=== PATIENT | female | born 1990 | race Caucasian/White ===

== ENCOUNTER 2017-12-11 06:02 | Inpatient (IN) ==
[2017-12-11] MEDS ORDERED: Lactated Ringers-OB Dept 1,000 ML ONE ×2 (06:34→07:13)
[2017-12-11] MEDS ORDERED: Metoclopramide Inj 10 MG/2 ML VIAL IV ONE (06:44)
[2017-12-11] MEDS ORDERED: Famotidine Inj 20 MG in Normal Saline Flush 10 ML IVP ONE (06:44)
[2017-12-11] MEDS ORDERED: Lactated Ringers 1,000 ML PRIMARY IV ONE ×2 (06:44→08:51)
[2017-12-11] MEDS ORDERED: LIDOCAINE W/ SODIUM BICARB 0.5 ML SYR SUBD PRN (06:44)
[2017-12-11] MEDS ORDERED: LIDOCAINE HCL 2 % 10 ML JELLY URO-JECT TOPICAL PRN (06:44)
[2017-12-11] MEDS ORDERED: CefOXitin Inj 2 GM in Sodium Chloride 0.9% 100 ML IV ONE (06:44)
[2017-12-11] MEDS ORDERED: CITRIC ACID/SODIUM CITRATE 30 ML CUP PO ONE ×2 (06:44→07:12)
[2017-12-11] MEDS ORDERED: NORMAL SALINE 10 ML SYRINGE FLUSH IVP PRN ×2 (06:44→07:50)
[2017-12-11] MEDS ORDERED: Lactated Ringers 1,000 ML PRIMARY IV SCH ×2 (06:45→08:00)
[2017-12-11] MEDS ORDERED: Oxytocin 20 Units + LR 20 UNIT/1,000 ML BAG IV SCH ×2 (06:45→09:36)
[2017-12-11 06:52] LABS: Hematocrit [HCT] 42.7 % (37.0-47.0); Hemoglobin [HGB] 14.7 g/dL (12.0-16.0); MEAN CORPUSCULAR HEMOGLOBIN 32.4 PG (27-31); MEAN CORPUSCULAR HGB CONC 34.4 g/dL (33-37); MEAN CORPUSCULAR VOLUME 94.1 FL (81-99); MEAN PLATELET VOLUME 11.6 FL (7.4-12.2); RED BLOOD COUNT 4.54 10^6/uL (4.20-5.40)
[2017-12-11] MEDS ORDERED: Metoclopramide Inj 10 MG/2 ML VIAL ONE (07:12)
[2017-12-11] MEDS ORDERED: FAMOTIDINE 20 MG/2 ML VIAL IVP ONE (07:13)
[2017-12-11] MEDS ORDERED: Sodium Chloride 0.9% 100 ML IV ONE (07:14)
[2017-12-11] MEDS ORDERED: Oxytocin 20 Units + LR 20 UNIT/1,000 ML BAG IV ONE (07:28)
[2017-12-11] MEDS ORDERED: ePHEDrine Inj 50 MG/ML AMP ONE (07:31)
[2017-12-11] MEDS ORDERED: Sodium Chloride 0.9% vial 10 ML ONE ×2 (07:32→07:36)
[2017-12-11] MEDS ORDERED: fentaNYL Inj 100 MCG/2 ML VIAL ONE (07:33)
[2017-12-11] MEDS ORDERED: PHENYLEPHRINE 10,000 MCG/1 ML VIAL ONE (07:34)
[2017-12-11] MEDS ORDERED: HYDROmorphone 2 MG/1 ML IVP PRN (07:50)
[2017-12-11] MEDS ORDERED: fentaNYL Inj 100 MCG/2 ML VIAL IVP PRN (07:50)
[2017-12-11] MEDS ORDERED: ATROPINE SULFATE 0.4 MG/1 ML VIAL IVP PRN (07:50)
[2017-12-11] MEDS ORDERED: ONDANSETRON 4 MG/2 ML VIAL ONE (08:28)
--- NOTE | 2017-12-11 09:07 | CRNA.PROGR ---
Anesthesia Time - - Start date: 12/11/17 End date: 12/11/17 - Procedure/Recovery Time Anesthesia : Time In: 07:57 Anesthesia : Time Out: 08:55 Anesthesia : Total Time: 58 - Total Anesthesia Time Total Anesthesia Time (minutes): 58 - Other Weight: 79.469 kg Height: 5 ft 10 in Body Mass Index (BMI): 25.1 Physical Status: P2 () Anesthesia Type: Spinal Block
--- NOTE | 2017-12-11 09:08 | CRNA.PROCE ---
Central Neuraxis Block Placemt - - Safety Measures: Time Out Taken - - Type of Block: Subarachnoid Moniters Used During Block: EKG, SPO2, NIBP Sedation Used - Enter Amount Used in Comment Field: Fentanyl (mcg): Yes (50) Positioning: Sitting Skin Prep Used: ChloroPrep (Twice) Skin Infiltration - Enter Amount Used in Comment Field: 1% Xylocaine (mL): Yes Introducer User: 23 Gauge Spinal Needle Used: 22 Prosper 80 mm Local Anesthetic - Enter Amount Used in Comment Field: 0.75 % Bupivacaine with Dextrose (ml): Yes (2 ml) Anesthesia Time - Other Weight: 79.469 kg Height: 5 ft 10 in Body Mass Index (BMI): 25.1
--- NOTE | 2017-12-11 09:09 | CRNA.PROGR ---
Anesthesia Recovery Phase I - Post Anesthesia Evaluation Patient's Condition on Arrival in Phase I: Stable Patient's Condition on Arrival in Phase II: Stable Pain Level: 0
[2017-12-11] MEDS ORDERED: Nalbuphine Inj 20 MG/ML Ampule IVP PRN (09:36)
[2017-12-11] MEDS ORDERED: CALCIUM CARBONATE 500 MG (TUMS) CHEWABLE TABLET PO PRN (09:36)
[2017-12-11] MEDS ORDERED: Naloxone Inj 0.01 MG, Sodium Chloride 0.9% vial 1 ML IVP PRN ×2 (09:36)
[2017-12-11] MEDS ORDERED: Famotidine Inj 20 MG in Normal Saline Flush 10 ML IVP PRN (09:36)
[2017-12-11] MEDS ORDERED: diphenhydrAMINE 50 MG/1 ML VIAL IV PRN (09:36)
[2017-12-11] MEDS ORDERED: HYDROmorphone 2 MG/1 ML IV PRN (09:36)
[2017-12-11] MEDS ORDERED: DIPH,PERTUSS,TET(ADACEL) VAC/PF 0.5 ML (Tdap) IM ONE (09:36)
[2017-12-11] MEDS ORDERED: diphenhydrAMINE 25 MG CAPSULE PO PRN (09:36)
[2017-12-11] MEDS ORDERED: LANOLIN HPA 40 GM TUBE TOPICAL PRN (09:36)
--- NOTE | 2017-12-11 09:42 | OB.OP.NOTE ---
Operative Report - - Surgeon: Rebekah Peterson MD Quality Compliance Manager: Juan Harden MD Anesthesia Type: Regional Anesthesia Provider: Marianna Ferro CRNA Surgery Date: 12/11/17 Preoperative Diagnosis: Elective section due to macrosomia Postoperative Diagnosis: same, delivered. Procedure: Primary section Complications: none Estimated Blood Loss (mL): 600 Urine Output (mL): 150 Fluids: 2500 mL of LR; 500 cc of LR with pitocin Indications: Pt is a 27 yo G3 now P1 at 39 weeks who has several u/s documenting baby's head measuring anywhere from 1 to 3 weeks ahead. The pt is noted to have a small/ tight pelvis and was counseled about her options. She requested a primary section and this is a reasonable request using objective data. Findings: male infant in cephalic presentation, clear amniotic fluid. His hand was up by his face. Normal uterus, tubes and ovaries. Description of Procedure: The patient was taken to the operating room where spinal anesthesia was found to be adequate. She was then prepared and draped in the normal sterile fashion in the dorsal supine position with a leftward tilt. A Pfannenstiel skin incision was then made with the scalpel and carried through to the underlying layer of fascia with Bovie. The fascia was incised in the midline and the incision extended laterally with the Bovie. The superior aspect of the fascial incision was then grasped with Ace clamps, elevated and the underlying rectus muscles dissected off bluntly. Attention was then turned to the inferior aspect of this incision which in a similar fashion was grasped with Ace clamps and the rectus muscles dissected off both bluntly and with the Bovie. The rectus muscles were then in the midline, and the peritoneum identified, tented up, and entered in a blunt fashion. The peritoneal incision was then extended superiorly and inferiorly with good visualization of the bladder. The Sonido retractor was then inserted and the vesicouterine peritoneum was identified. The lower uterine segment incised in the transverse fashion with the scalpel. The uterine incision was then extended laterally in a blunt fashion. The infant's head was delivered atraumatically. The nose and mouth were suctioned with the bulb suction and the cord clamped and cut. The was handed off to the waiting nurse. Cord gases and cord blood were sent for analysis. The placenta was then removed manually; the uterus exteriorized, and cleared of all clots and debris. The uterine incision was repaired with 0 Vicryl in a running, locked fashion. A second layer of the same suture was used to obtain excellent hemostasis. The peritoneal cavity was then copiously irrigated with warm saline. The uterus was returned to the abdomen. The paracolic gutters were copiously irrigated with warm saline and a second look at the uterine incision continued to reveal excellent hemostasis. The peritoneum was closed with 3-0 Vicryl. The fascia reapproximated with 0 vicryl in a running fashion. The subcutaneous space was irrigated with copiously with warm saline and then closed first with 3-0 Vicryl and then more superficially with Insorb absorbable sutures. The skin was reapproximated with Steri-Strips and a Silverlon dressing applied. Fundal massage was completed with no clots in vaginal vault. The patient tolerated the procedure well. Sponge, lap, and needle counts were correct x2. Mefoxin was given preoperatively less than one hour prior to incision time. The patient was taken to the recovery room in stable condition. Patient Problems - Patient Problem List (1) S/P primary low transverse Current Visit: Yes Status: Acute Code(s): Z98.891 - History of uterine scar from previous surgery Category: Medical
[2017-12-11] MEDS: oxyCODONE-ACETAMINOPHEN 5-325 TAB PO PRN ×4 (11:15→23:46)
[2017-12-11] MEDS: D5-LR 1,000 ML PRIMARY IV SCH ×2 (11:16→19:55)
[2017-12-11] MEDS: ONDANSETRON 4 MG/2 ML VIAL IVP PRN ×3 (15:37→23:46)
[2017-12-11] MEDS: NORMAL SALINE 10 ML SYRINGE FLUSH IVP PRN ×3 (19:20→23:47)
[2017-12-11] MEDS: KETOROLAC 15 MG/1 ML VIAL IVP SCH ×2 (19:39→20:16)
[2017-12-12] MEDS: KETOROLAC 15 MG/1 ML VIAL IVP SCH ×5 (00:18→20:01)
[2017-12-12] MEDS: NORMAL SALINE 10 ML SYRINGE FLUSH IVP PRN ×2 (02:55→14:18)
[2017-12-12 05:15] LABS: Hemoglobin [HGB] 12.6 g/dL (12.0-16.0); MEAN CORPUSCULAR HEMOGLOBIN 32.8 PG (27-31); MEAN CORPUSCULAR HGB CONC 34.1 g/dL (33-37); MEAN CORPUSCULAR VOLUME 96.4 FL (81-99); MEAN PLATELET VOLUME 11.6 FL (7.4-12.2); RED BLOOD COUNT 3.84 10^6/uL (4.20-5.40)
--- NOTE | 2017-12-12 06:48 | CRNA.PROGR ---
Anesthesia Note - Progress Notes Anesthesia Progress Note: status post 12/11/17. Laboratory Results 12/11/17 12/11/17 12/12/17 Range/Units 06:44 06:44 04:05 WBC 10.70 9.19 (4.8-10.8) 10^3/uL RBC 4.54 3.84 L (4.20-5.40) 10^6/uL Hgb 14.7 12.6 (12.0-16.0) g/dL Hct 42.7 37.0 (37.0-47.0) % MCV 94.1 96.4 (81-99) FL MCH 32.4 H 32.8 H (27-31) PG MCHC 34.4 34.1 (33-37) g/dL RDW Std Deviation 43.8 45.3 (39-50) fL RDW Coeff of Josselyn 13.0 13.2 (11.5-14.5) % Plt Count 177 162 (140-350) 10*3/uL MPV 11.6 11.6 (7.4-12.2) FL Blood Type O POSITIVE Antibody Screen Negative Vital Signs (Last 8 hours) Temp Pulse Resp BP Pulse Ox 12/12/17 04:17 98.0 F 78 12 96 12/12/17 01:00 98.6 F 68 16 110/66 96 Vital Signs - Last Taken Temperature 98.0 F 12/12/17 04:17 Pulse Rate 78 12/12/17 04:17 Respiratory Rate 12 12/12/17 04:17 Blood Pressure 110/66 12/12/17 01:00 Pulse Ox 96 12/12/17 04:17 She denies headache or backache at this point. Baby is nursing well. No apparent anesthetic difficulties.
[2017-12-12] MEDS: ONDANSETRON 4 MG/2 ML VIAL IVP PRN ×2 (07:12→11:06)
[2017-12-12] MEDS: oxyCODONE-ACETAMINOPHEN 5-325 TAB PO PRN ×4 (07:13→20:00)
[2017-12-12] MEDS: Senna/Docusate Tab 1 TAB TAB PO SCH ×2 (09:12→19:59)
[2017-12-12] MEDS: Prenatal Multivitamin Tab 1 TAB TAB PO SCH (09:12)
[2017-12-12] MEDS ORDERED: IBUPROFEN 800 MG TABLET PO PRN (09:25)
[2017-12-12] MEDS ORDERED: Ondansetron ODT Tab 4 MG TAB PO ONE (15:21)
[2017-12-12] MEDS: Ondansetron ODT Tab 4 MG TAB PO PRN ×2 (15:24→20:00)
[2017-12-12 17:45] VITALS: RESP 16
[2017-12-12] MEDS ORDERED: KETOROLAC 15 MG/1 ML VIAL ONE (19:55)
--- NOTE | 2017-12-12 20:06 | OB.PROGRES ---
Subjective Post Op Day: 1 Pain Management: PO Valenzuela Catheter: No Flatus: Yes Diet: Regular Feeding Method: Exculsively Ambulating: Yes Concerns / Additional Information: No complaints. Mild lochia. Baby feeding well. Pt hasn't taken much percocet, mainly motrin. Normal voids. Objective - General General Appearance: POSITIVE: No Acute Distress, Cooperative - Cardiovacular Cardiovascular Exam: POSITIVE: RRR, No Murmur Edema: +1 Pedal Edema Extremities: Negative Genny's - Bilaterally - Respiratory Respiratory Exam: POSITIVE: Clear to Auscultation - Bilaterally, Breathing Non Labored - Abdomen Bowel Sounds: Hypoactive Abdominal Wound Assessment: [place]lone Dressing Assesstment / Plan (1) S/P primary low transverse Current Visit: Yes Status: Acute Assessment / Plan: -routine cares. -breast feeding well. -rubella immune. -rh positive. -possible d/c home tomorrow.
[2017-12-13] MEDS: oxyCODONE-ACETAMINOPHEN 5-325 TAB PO PRN ×4 (00:40→18:19)
[2017-12-13] MEDS: Ondansetron ODT Tab 4 MG TAB PO PRN ×4 (00:43→18:18)
[2017-12-13 04:36] VITALS: O2SAT 96
[2017-12-13] MEDS: Prenatal Multivitamin Tab 1 TAB TAB PO SCH (09:46)
[2017-12-13] MEDS: Senna/Docusate Tab 1 TAB TAB PO SCH (09:47)
[2017-12-13 12:47] VITALS: BP 108/67; TEMP 98.4
--- NOTE | 2017-12-13 13:17 | DCSUMMARY ---
Hospitalization Summary Admit Date: 12/11/17 Discharge Date: 12/13/17 Primary Diagnosis:: Primary section Secondary Diagnosis:: Suspected macrosomia Primary Surgery and Date: Primary section on 12/11. Delivery Type: Hospital Course: Pt was admitted for primary section. For details of her surgery, please see operative report dictated elsewhere in the chart. / Postop Complications: Pt had an uncomplicated post-operative course. Her pain has been well controlled on percocet and motrin. She is voiding without difficulty. Baby is nursing well. She is ambulating independently. She is requesting discharge home. [place] Complications: none Exam - Vitals Vital Signs: Vital Signs Temperature 98.4 F Temperature Source Oral Pulse Rate [Pulse Oximeter] 67 Pulse Rate 66 Respiratory Rate 16 Blood Pressure [Right Arm] 108/67 Blood Pressure 124/68 Pulse Ox 96 Oxygen Delivery Method Room Air Height 5 ft 10 in Weight 175 lb 3.2 oz - General General Appearance: No Acute Distress, Cooperative - Head Head Exam: Normal Inspection - ENT ENT Exam: POSITIVE: Normal Exam - Neck Neck Exam: Normal Inspection - Respiratory Respiratory Exam: POSITIVE: Clear to Auscultation - Bilaterally, Breathing Non Labored - Cardiovascular Cardiovascular Exam: POSITIVE: RRR, No Murmur - GI/Abdominal GI/Abdominal Exam: POSITIVE: Normal Bowel Sounds, Non Tender, Non Distended, Soft - Extremities Extremities Exam: POSITIVE: Normal Inspection, Full ROM, Normal Capillary Refill - Neurological Neurological Exam: POSITIVE: Alert, Oriented x 3 - Psychiatric Psychiatric Exam: POSITIVE: Normal Affect, Normal Mood - Integumentary Integumentary Exam: POSITIVE: Normal Color, Warm, Dry Patient Problems - Patient Problem List (1) S/P primary low transverse Current Visit: Yes Status: Acute Code(s): Z98.891 - History of uterine scar from previous surgery Category: Medical
== END 2017-12-13 19:05 | disposition home or self-care (01) | DRG 766 ==
LOC: OBIP 06:02
PROVIDERS: ADMIT Family Medicine; ATTEND Family Medicine